=== PATIENT | male | born 1955 | race Caucasian/White ===

== ENCOUNTER 2016-08-28 14:10 | Inpatient (IN) | payer OTHER, MEDICARE ==
[2016-08-28] VITALS (7 sets, daily range): BP systolic 132–156; BP diastolic 78–100; PULSE 69–86; RESP 16–21; TEMP 98.2–98.8; O2SAT 95–99
[~2016-08-28] VITALS: Ht 177.8 cm; Wt 85.9 kg
[~2016-08-28 14:10] MED LIST: DIVA250T PO; GABA100C4 PO; HYDR-3533 PO; HYDR12.56 PO; LEVO137T2 PO; METH750T2 PO; NAPR-576 PO; OMEP20TA PO; PRED10PA PO; REME30TA PO; RISP1 PO; TRAM50 PO; UNK BP MED; ZOLO50TA PO; [UNRECOGNIZED DRUG - REMARK]; [UNRECOGNIZED DRUG - REMARK]
[2016-08-28] MEDS ORDERED: SODIUM CHLOR 0.9% 1000 ML INJ 1,000 ML IV ONE (15:07)
--- NOTE | 2016-08-28 15:08 | PD ---
HPI Chief Complaint: Abnormal Results Time Seen by Provider: 15:08 Travel History International Travel<30 days: No Contact w/Intl Traveler<30days: No Traveled to known affect area: No History of Present Illness HPI 60-year-old male with history of hypothyroidism, CAD, hypertension, COPD, presents to the emergency department for evaluation of hyponatremia. [facility] He went [facility] for reevaluation today and had lab work complete. He was called and instructed to come to the emergency department for low sodium. Patient states that the last week he has had intermittent bouts of lightheadedness with a sensation that he is going to "pass out." States that he has had no fevers or chills this week but did prior to receiving antibiotics for pneumonia. Patient states that he smokes tobacco cigarettes but has decreased to 1 daily. Denies any chest pain or tightness. No nausea or vomiting. No episodes of diaphoresis. No other symptoms to report. PFSH Past Medical History Bipolar Disorder: Yes Cardiovascular Problems: Yes (HTN) COPD: Yes Hypertension: Yes Respiratory: Yes (PNA) Seizures: Yes Thyroid Disease: Yes Social History Alcohol Use: Yes Tobacco Use: No Substance Use: No Allergies-Medications (Allergen,Severity, Reaction): Coded Allergies: No Known Allergies (Unverified , 08/28/16) Reported Meds & Prescriptions Reported Meds & Active Scripts Active Reported Methocarbamol 500 Mg Tab 500 Mg PO TID PRN Depakote DR (Divalproex Sodium) 500 Mg Tabdr 1,500 Mg PO HS Prazosin (Prazosin HCl) 2 Mg Cap 6 Mg PO HS Risperdal (Risperidone) 3 Mg Tab 3 Mg PO HS Remeron (Mirtazapine) 15 Mg Tab 15 Mg PO HS Zoloft (Sertraline HCl) 100 Mg Tab 200 Mg PO HS Pravastatin 20 Mg Tab 20 Mg PO HS Venlafaxine ER 24 HR (Venlafaxine HCl) 150 Mg Tab 150 Mg PO DAILY Omeprazole 20 Mg Tab 20 Mg PO DAILY Levothyroxine (Levothyroxine Sodium) 150 Mcg Tab 150 Mcg PO DAILY Dyazide (Triamterene-Hydrochlorothiazide) 37.5-25 Mg Cap 1 Cap PO DAILY Gabapentin 300 Mg Cap 900 Mg PO TID Review of Systems Except as stated in HPI: all other systems reviewed are Neg Physical Exam Narrative GENERAL: Well-nourished male patient, in no acute distress SKIN: Focused skin assessment warm/dry. HEAD: Atraumatic. Normocephalic. EYES: Pupils equal and round. No scleral icterus. No injection or drainage. ENT: No nasal bleeding or discharge. Mucous membranes pink and moist. NECK: Trachea midline. No JVD. CARDIOVASCULAR: Regular rate and rhythm. No murmur appreciated. RESPIRATORY: No accessory muscle use. Coarse throughout. Breath sounds equal bilaterally. GASTROINTESTINAL: Abdomen soft, non-tender, nondistended. Hepatic and splenic margins not palpable. MUSCULOSKELETAL: No obvious deformities. No clubbing. No cyanosis. No edema. NEUROLOGICAL: Awake and alert. No obvious cranial nerve deficits. Motor grossly within normal limits. Normal speech. PSYCHIATRIC: Appropriate mood and affect; insight and judgment normal. Data Data Last Documented VS Vital Signs Date Time Temp Pulse Resp B/P Pulse Ox O2 Delivery O2 Flow Rate FiO2 08/28/16 15:27 75 16 138/78 97 Room Air 08/28/16 14:12 98.8 Orders Electrocardiogram (08/28/16 15:07) Basic Metabolic Panel (Bmp) (08/28/16 15:07) Complete Blood Count With Diff (08/28/16 15:07) Magnesium (Mg) (08/28/16 15:07) Ckmb (Isoenzyme) Profile (08/28/16 15:07) Troponin I (08/28/16 15:07) Act Partial Throm Time (Ptt) (08/28/16 15:07) Prothrombin Time / Inr (Pt) (08/28/16 15:07) Urinalysis - C+S If Indicated (08/28/16 15:07) Chest, Single Ap (08/28/16 15:07) Ct Brain W/O Iv Contrast(Rout) (08/28/16 15:07) Ecg Monitoring (08/28/16 15:07) Iv Access Insert/Monitor (08/28/16 15:07) Oximetry (08/28/16 15:07) Sodium Chloride 0.9% Flush (Ns Flush) (08/28/16 15:15) Sodium Chlor 0.9% 1000 Ml Inj (Ns 1000 M (08/28/16 15:07) Ct Thorax/ Chest W Iv Contrast (08/28/16 ) CKMB (08/28/16 15:18) CKMB% (08/28/16 15:18) Iohexol 350 Inj (Omnipaque 350 Inj) (08/28/16 16:29) Admit Order (Ed Use Only) (08/28/16 17:16) Labs Laboratory Tests Test 08/28/16 08/28/16 15:18 17:10 White Blood Count 7.5 TH/MM3 Red Blood Count 4.55 MIL/MM3 Hemoglobin 13.9 GM/DL Hematocrit 38.8 % Mean Corpuscular Volume 85.3 FL Mean Corpuscular Hemoglobin 30.6 PG Mean Corpuscular Hemoglobin 35.9 % Concent Red Cell Distribution Width 13.2 % Platelet Count 228 TH/MM3 Mean Platelet Volume 6.9 FL Neutrophils (%) (Auto) 65.4 % Lymphocytes (%) (Auto) 18.3 % Monocytes (%) (Auto) 13.7 % Eosinophils (%) (Auto) 1.9 % Basophils (%) (Auto) 0.7 % Neutrophils # (Auto) 4.9 TH/MM3 Lymphocytes # (Auto) 1.4 TH/MM3 Monocytes # (Auto) 1.0 TH/MM3 Eosinophils # (Auto) 0.1 TH/MM3 Basophils # (Auto) 0.1 TH/MM3 CBC Comment DIFF FINAL Differential Comment Prothrombin Time 11.4 SEC Prothromb Time International 1.0 RATIO Ratio Activated Partial 35.2 SEC Thromboplast Time Sodium Level 116 MEQ/L Potassium Level 4.2 MEQ/L Chloride Level 81 MEQ/L Carbon Dioxide Level 25.7 MEQ/L Anion Gap 9 MEQ/L Blood Urea Nitrogen 13 MG/DL Creatinine 0.84 MG/DL Estimat Glomerular Filtration 93 ML/MIN Rate Random Glucose 78 MG/DL Calcium Level 8.1 MG/DL Magnesium Level 1.8 MG/DL Total Creatine Kinase 436 U/L Creatine Kinase MB 4.2 NG/ML Creatine Kinase MB % 1.0 % Troponin I LESS THAN 0.02 NG/ML Thyroid Stimulating Hormone 16.400 uIU/ML 3rd Gen Urine Color YELLOW Urine Turbidity HAZY Urine pH 7.5 Urine Specific [place] 1.014 Urine Protein NEG mg/dL Urine Glucose (UA) NEG mg/dL Urine Ketones NEG mg/dL Urine Occult Blood NEG Urine Nitrite NEG Urine Bilirubin NEG Urine Urobilinogen LESS THAN 2.0 MG/DL Urine Leukocyte Esterase NEG Urine WBC LESS THAN 1 /hpf Urine Squamous Epithelial <1 /hpf Cells Urine Amorphous Sediment RARE Microscopic Urinalysis Comment CULT NOT INDICATED Urine Osmolality 393 MOSM/KG Urine Random Sodium 90 MEQ/L MDM Medical Decision Making Medical Screen Exam Complete: Yes Emergency Medical Condition: Yes Medical Record Reviewed: Yes Differential Diagnosis Hyponatremia versus other electrolyte abnormality versus intracranial etiology versus neoplasm versus sepsis versus metastatic disease Narrative Course 60-year-old male presents to emergency department for evaluation of hyponatremia. Patient also has coarse breath sounds throughout. CBC is without acute concern. BMP is with a hyponatremia of 116. Troponin is less than 0.02. X-ray imaging of the chest shows a masslike opacity in the right middle lobe representing either complete consolidation of the right middle lobe versus mass. CT imaging of the thorax with contrast is warranted for further assessment. This is ordered. CT imaging of the brain is complete and pending. A call has been placed to [facility] for [facility]. I discussed with the patient findings on x-ray of his chest and informed him that CT imaging is ordered. Patient states that he was told in [place] that he did have a concerning area on his chest it just has not been worked up yet. I spoke with Dr. Singh. Patient will be admitted to the [facility] service. Diagnosis Primary Impression: Hyponatremia Additional Impression: Lung mass Admitting Information Admitting Physician Requests: Admit Condition: Stable Katherine العلي Aug 28, 2016 15:08
[2016-08-28] MEDS ORDERED: SODIUM CHLORIDE 0.9% FLUSH 10 ML FLUSH IVF PRN (15:15)
[2016-08-28 15:30] LABS: AUTOMATED NEUTROPHIL # 4.9 TH/MM3 (1.8-7.7); BASOPHIL # 0.1 TH/MM3 (0-0.2); BASOPHIL % 0.7 % (0.0-2.0); EOSINOPHIL # 0.1 TH/MM3 (0-0.4); EOSINOPHIL % 1.9 % (0.0-4.0); HEMATOCRIT 38.8 % (39.0-51.0); HEMO FLAGS DIFF FINAL; LYMPH % 18.3 % (9.0-44.0); LYMPHOCYTE # 1.4 TH/MM3 (1.0-4.8); MEAN CELL VOLUME 85.3 FL (80.0-100.0); MEAN CORPUSCULAR HEMOGLOBIN 30.6 PG (27.0-34.0); MEAN CORPUSCULAR HGB CONC 35.9 % (32.0-36.0); MONO % 13.7 % (0.0-8.0); NEUT % 65.4 % (16.0-70.0); PLATELET COUNT 228 TH/MM3 (150-450); RED BLOOD COUNT 4.55 MIL/MM3 (4.50-5.90); RED CELL DISTRIBUTION WIDTH 13.2 % (11.6-17.2); WHITE BLOOD COUNT 7.5 TH/MM3 (4.0-11.0)
[2016-08-28 15:37] LABS: APTT (PATIENT) 35.2 SEC (24.3-30.1); PROTHROMBIN TIME - PATIENT 11.4 SEC (9.8-11.6)
--- NOTE | 2016-08-28 15:51 | RADRPT ---
EXAM DATE/TIME: 08/28/2016 15:18 [facility] COMPARISON: No previous studies available for comparison. INDICATIONS : Dizziness. MEDICAL HISTORY : Chronic obstructive pulmonary disease. Asthma. SURGICAL HISTORY : None. ENCOUNTER: Initial ACUITY: 1 month PAIN SCORE: 0/10 LOCATION: chest FINDINGS: The heart is normal in size for the left lung is clear. The exam demonstrates either mass or complete consolidation of the right middle lobe. CT imaging of thorax is warranted for further assessment. CONCLUSION: 1. Mass like opacification in the right middle lobe representing either complete consolidation of the right middle lobe versus mass. CT imaging of the thorax with contrast is warranted for further asses sment. Lacho Lancaster MD on August 28, 2016 at 15:48 Board Certified Radiologist. This report was verified electronically.
[2016-08-28 15:57] LABS: ANION GAP 9 MEQ/L (5-15); BICARBONATE 25.7 MEQ/L (21.0-32.0); BLOOD UREA NITROGEN 13 MG/DL (7-18); CHLORIDE 81 MEQ/L (98-107); CREATINE KINASE 436 U/L (39-308); GLOMERULAR FILTRATION RATE 93 ML/MIN (>89); MAGNESIUM 1.8 MG/DL (1.5-2.5); POTASSIUM 4.2 MEQ/L (3.5-5.1)
[2016-08-28] MEDS ORDERED: DYAZ37.5 PO (15:59)
[2016-08-28] MEDS ORDERED: METH500T3 PO (15:59)
[2016-08-28] MEDS ORDERED: GABA300C5 PO (15:59)
[2016-08-28] MEDS ORDERED: DEPA500T PO (15:59)
[2016-08-28] MEDS ORDERED: PRAZ2CAP PO (15:59)
[2016-08-28] MEDS ORDERED: LEVO150T7 PO (15:59)
[2016-08-28] MEDS ORDERED: RISP3 PO (15:59)
[2016-08-28] MEDS ORDERED: REME15TA PO (15:59)
[2016-08-28] MEDS ORDERED: VENL150T PO (15:59)
[2016-08-28] MEDS ORDERED: OMEP20TA PO (15:59)
[2016-08-28] MEDS ORDERED: PRAV20TA2 PO (15:59)
[2016-08-28] MEDS ORDERED: ZOLO100T PO (15:59)
[2016-08-28 16:00] LABS: SODIUM (NA) 116 MEQ/L (136-145)
[2016-08-28 16:18] LABS: CKMB 4.2 NG/ML (0.5-3.6)
[2016-08-28] MEDS ORDERED: IOHEXOL 350 MG/ML 10 ML VIAL (for RAD DIAG) IV ONE (16:29)
--- NOTE | 2016-08-28 17:14 | RADRPT ---
EXAM DATE/TIME: 08/28/2016 15:49 [facility] COMPARISON: No previous studies available for comparison. INDICATIONS : Headache and altered mental status. RADIATION DOSE: 56.35 CTDIvol (mGy) MEDICAL HISTORY : Hypertension. SURGICAL HISTORY : None. ENCOUNTER: Initial ACUITY: 1 day PAIN SCALE: 5/10 LOCATION: cranial TECHNIQUE: Multiple contiguous axial images were obtained of the head. Using automated exposure control and adj ustment of the mA and/or kV according to patient size, radiation dose was kept as low as reasonably a chievable to obtain optimal diagnostic quality images. FINDINGS: CEREBRUM: The ventricles are normal for age. No evidence of midline shift, mass lesion, hemorrhage or acute in farction. No extra-axial fluid collections are seen. POSTERIOR FOSSA: The cerebellum and brainstem are intact. The 4th ventricle is midline. The cerebellopontine angle i s unremarkable. EXTRACRANIAL: The visualized portion of the orbits is intact. SKULL: The calvaria is intact. No evidence of skull fracture. CONCLUSION: Normal examination. Avinash Negron MD on August 28, 2016 at 17:12 Board Certified Radiologist. This report was verified electronically.
--- NOTE | 2016-08-28 17:37 | RADRPT ---
EXAM DATE/TIME: 08/28/2016 16:24 [facility] COMPARISON: CT BRAIN W/O CONTRAST, August 28, 2016, 15:49. INDICATIONS : Right middle lobe mass seen on CXR today. IV CONTRAST: 80 cc Omnipaque 350 (iohexol) IV RADIATION DOSE: 5.93 CTDIvol (mGy) MEDICAL HISTORY : Hypertension. SURGICAL HISTORY : None. ENCOUNTER: Initial ACUITY: 1 day PAIN SCALE: 3/10 LOCATION: Bilateral lower chest TECHNIQUE: Volumetric scanning of the chest was performed. Using automated exposure control and adjustment of t he mA and/or kV according to patient size, radiation dose was kept as low as reasonably achievable to obtain optimal diagnostic quality images. FINDINGS: The examination demonstrates a 6.2 x 6.5 cm right infrahilar mass. There is extensive adenopathy evid ent encasing the right hilum and extending into the subcarinal fred chain. There is superior mediast inal adenopathy as well with nodes measuring up to 4.5 x 3.3 cm. Findings are consistent with fairly widespread malignancy. Imaging through the thorax demonstrate advanced COPD changes. There are atelectatic changes within th e right middle lobe. The examination also demonstrates a 9 mm nodule in the posterior aspect of the r ight lobe, potentially representing a small satellite lesion. The visualized bony structures demonstrate degenerative changes but are otherwise intact. CONCLUSION: 1. There is a 6 cm mass arising from the inferior aspect of the right hilum with extension up into th e mediastinum and the subcarinal fred chain. There are numerous enlarged superior mediastinal nodes. The findings are consistent with fairly widespread malignancy. 2. There is a 9 mm ill-defined nodule in the posterior aspect of the right lower lobe. This is indete rminate by CT. Lacho Lancaster MD on August 28, 2016 at 17:31 Board Certified Radiologist. This report was verified electronically.
[2016-08-28 17:42] LABS: BLOOD, URINE NEG (NEG); COMMENT (UR) CULT NOT INDICATED; CULTURE IF INDICATED CULT NOT INDICATED; GLUCOSE,URINE NEG (NEG); KETONE, URINE NEG (NEG); NITRITE,URINE NEG (NEG); PH, URINE 7.5 (5.0-8.5); SQUAMOUS EPITHELIAL CELL URINE <1 /hpf (0-5); URINE COLOR YELLOW (YELLW/STRAW)
--- NOTE | 2016-08-28 18:44 | HHI.HP ---
HPI Service [facility] Primary Care Physician [facility] Admission Diagnosis hyponatremia; Lung mass Diagnoses: Chief Complaint: [place] for abnormal labs sodium of 116 Travel History International Travel<30 Days: No Contact w/Intl Traveler <30 Da: No Traveled to Known Affected Are: No History of Present Illness Patient is a 60-year-old male who was sent here from [place] hospital because of abnormal lab. Specifically sodium of 118. Patient denies any headache nausea or vomiting dizziness does complain of slight weakness but nothing more than usual. On further evaluation also had the abnormal chest x-ray here and a CT was done ordered by ER physician showed a right hilar mass. On further questioning patient was actually treated for pneumonia back in April. Persistent cough sputum productive of occasionally yellowish whitish phlegm. Denies any hemoptysis. The last time he was treated for pneumonia was in last week in [place] physical completed a course of by mouth antibiotics. Apparently the x-ray persistently abnormal and he was actually scheduled to have a another repeat imaging study sounds like CT next week. However because of his abnormal labs was sent here for further management. Review of Systems Constitutional: DENIES: Diaphoretic episodes, Fatigue, Fever, Weight gain, Weight loss, Chills, Dizziness, Change in appetite, Night Sweats Endocrine: DENIES: Heat/cold intolerance, Polydipsia, Polyuria, Polyphagia Eyes: DENIES: Blurred vision, Double Vision Ears, nose, mouth, throat: DENIES: Tinnitus, Ear Pain, Epistaxis, Odynophagia Respiratory: COMPLAINS OF: Cough, DENIES: Hemoptysis, Sputum production, Shortness of breath Cardiovascular: DENIES: Chest pain, Palpitations, Dyspnea on Exertion, Lower Extremity Edema, Orthopnea Gastrointestinal: DENIES: Black stools, Bloody stools, Difficulty Swallowing, Anorexia Genitourinary: DENIES: Urgency, Hematuria, Penile Discharge Musculoskeletal: DENIES: Joint pain, Stiffness Integumentary: DENIES: Pruritus Hematologic/lymphatic: DENIES: Bruising Immunologic/allergic: DENIES: Urticaria Neurologic: DENIES: Headache, Speech Problems, Tremor Psychiatric: DENIES: Suicidal Ideation, Homicidal Ideation Past Family Social History Past Medical History Hypertension Bipolar disorder Uropathy Chronic pain Hypothyroidism Hypertension GERD Insomnia Depression Past Surgical History Right knee per day grad surgery Maxillofacial surgery years ago from a blowout fracture Reported Medications Prazosin 6 mg at bedtime Depakote 1500 mg at bedtime Gabapentin 900 mg 3 times a day Remeron 50 mg at bedtime Zoloft 200 mg at bedtime Venlafaxine 150 mg daily Risperdal 3 mg at bedtime Methocarbamol 500 mg 3 times a day Pravastatin 20 mg at bedtime Dyazide 37.5/25 mg daily Omeprazole 20 mg daily Synthroid 150 g daily : Atrovent inhalers. Also have nebulizer machine when necessary Allergies: Coded Allergies: No Known Allergies (Unverified , 08/28/16) Family History Denies any family history of cancer Social History Smokes 3 packs a day for the longest time and is actually weaning himself down to1-3 cigarettes down per day Physical Exam Vital Signs Vital Signs Date Time Temp Pulse Resp B/P Pulse Ox O2 Delivery O2 Flow Rate FiO2 08/28/16 18:23 98.7 74 18 153/91 99 Room Air 08/28/16 15:27 75 16 138/78 97 Room Air 08/28/16 15:00 87 18 95 Room Air 08/28/16 14:12 98.8 86 20 132/96 95 Room Air Physical Exam GENERAL: well-developed patient, in no apparent distress. SKIN: No rashes, ecchymoses or lesions. Cool and dry. HEAD: Atraumatic. Normocephalic. No temporal or scalp tenderness. EYES: Pupils equal round and reactive. Extraocular motions intact. No scleral icterus. No injection or drainage. ENT: Nose without bleeding,. Throat without erythema, tonsillar hypertrophy or exudate. Uvula midline. Airway patent. NECK: Trachea midline. No JVD or lymphadenopathy. Supple, nontender, no meningeal signs. CARDIOVASCULAR: Regular rate and rhythm without murmurs, gallops, or rubs. RESPIRATORY: Clear to auscultation. Breath sounds equal bilaterally. No wheezes , rales, or rhonchi. No axillary lymphadenopathy GASTROINTESTINAL: Abdomen soft, non-tender, nondistended. No hepato-splenomegaly , or palpable masses. No guarding. MUSCULOSKELETAL: Extremities without clubbing, cyanosis, or edema. No joint tenderness, effusion, or edema noted. No calf tenderness. Negative Homans sign bilaterally. NEUROLOGICAL: Awake and alert. Cranial nerves II through XII intact. Motor and sensory grossly within normal limits. Five out of 5 muscle strength in all muscle groups. Normal speech. Laboratory Laboratory Tests Test 08/28/16 08/28/16 15:18 17:10 White Blood Count 7.5 Red Blood Count 4.55 Hemoglobin 13.9 Hematocrit 38.8 Mean Corpuscular Volume 85.3 Mean Corpuscular Hemoglobin 30.6 Mean Corpuscular Hemoglobin 35.9 Concent Red Cell Distribution Width 13.2 Platelet Count 228 Mean Platelet Volume 6.9 Neutrophils (%) (Auto) 65.4 Lymphocytes (%) (Auto) 18.3 Monocytes (%) (Auto) 13.7 Eosinophils (%) (Auto) 1.9 Basophils (%) (Auto) 0.7 Neutrophils # (Auto) 4.9 Lymphocytes # (Auto) 1.4 Monocytes # (Auto) 1.0 Eosinophils # (Auto) 0.1 Basophils # (Auto) 0.1 CBC Comment DIFF FINAL Differential Comment Prothrombin Time 11.4 Prothromb Time International 1.0 Ratio Activated Partial 35.2 Thromboplast Time Sodium Level 116 Potassium Level 4.2 Chloride Level 81 Carbon Dioxide Level 25.7 Anion Gap 9 Blood Urea Nitrogen 13 Creatinine 0.84 Estimat Glomerular Filtration 93 Rate Random Glucose 78 Calcium Level 8.1 Magnesium Level 1.8 Total Creatine Kinase 436 Creatine Kinase MB 4.2 Creatine Kinase MB % 1.0 Troponin I LESS THAN 0.02 Thyroid Stimulating Hormone 16.400 3rd Gen Urine Color YELLOW Urine Turbidity HAZY Urine pH 7.5 Urine Specific [place] 1.014 Urine Protein NEG Urine Glucose (UA) NEG Urine Ketones NEG Urine Occult Blood NEG Urine Nitrite NEG Urine Bilirubin NEG Urine Urobilinogen LESS THAN 2.0 Urine Leukocyte Esterase NEG Urine WBC LESS THAN 1 Urine Squamous Epithelial <1 Cells Urine Amorphous Sediment RARE Microscopic Urinalysis Comment CULT NOT INDICATED Urine Osmolality 393 Urine Random Sodium 90 Result Diagram: 08/28/16 1518 08/28/16 1518 Imaging Last Impressions Head CT 08/28/16 1507 Signed Impressions: Service Date/Time: Sunday, August 28, 2016 15:49 - CONCLUSION: Normal examination. Avinash Negron MD Chest X-Ray 08/28/16 1507 Signed Impressions: Service Date/Time: Sunday, August 28, 2016 15:18 - CONCLUSION: 1. Mass like opacification in the right middle lobe representing either complete consolidation of the right middle lobe versus mass. CT imaging of the thorax with contrast is warranted for further assessment. Lacho Lancaster MD Chest CT 08/28/16 0000 Signed Impressions: Service Date/Time: Sunday, August 28, 2016 16:24 - CONCLUSION: 1. There is a 6 cm mass arising from the inferior aspect of the right hilum with extension up into the mediastinum and the subcarinal fred chain. There are numerous enlarged superior mediastinal nodes. The findings are consistent with fairly widespread malignancy. 2. There is a 9 mm ill-defined nodule in the posterior aspect of the right lower lobe. This is indeterminate by CT. 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 - patient euvolemic strict fluid restriction consider NaCl tab or [facility] nephrology consult Hypothyroidism with elevated TSH- which can contribute to low Na We will increase Synthroid dose consider NaCl tabs. consider nephrology consult in am if no improvement- ? [facility] Lung mass with mediastinal metastases. IR consult for CT guided biopsy COPD. In remission continue on inhalers Hypertension as stated will discontinue Dyazide monitor blood pressures to change to another class of antihypertensive History of GERD continue on omeprazole History of bipolar disorder/depression. Continue on Depakote. Remeron. History of neuropathy continue on gabapentin 900 mg 3 times a day History of hyperlipidemia continue on pravastatin Discussed with patient. Discussed Condition With Patient Physician Certification 2 Midnight Certification Type: Admission for Inpatient Services Order for Inpatient Services The services are ordered in accordance with Medicare regulations or non- Medicare payer requirements, as applicable. In the case of services not specified as inpatient-only, they are appropriately provided as inpatient services in accordance with the 2-midnight benchmark. Estimated LOS (days): 3 days is the estimated time the patient will need to remain in the hospital, assuming treatment plan goals are met and no additional complications. Post-Hospital Plan: Not yet determined Delfino Singh MD Aug 28, 2016 18:44 Delfino Singh MD Aug 28, 2016 18:44
[2016-08-28] MEDS ORDERED: METHOCARBAMOL 500 MG TAB PO PRN (18:45)
[2016-08-28] MEDS ORDERED: cloNIDine HCL 0.1 MG TAB PO PRN (19:00)
[2016-08-28] MEDS: PRAVASTATIN SOD 20 MG TAB PO SCH (21:50)
[2016-08-28] MEDS: MIRTAZAPINE 15 MG TAB PO SCH (21:50)
[2016-08-28] MEDS: SERTRALINE HCL 100 MG TAB PO SCH (21:50)
[2016-08-28] MEDS: DIVALPROEX DR 500 MG TABEC PO SCH (21:50)
[2016-08-28] MEDS: risperiDONE 3 MG TAB PO SCH (21:51)
[2016-08-28] MEDS: PRAZOSIN HCL 2 MG CAP PO SCH (21:51)
[2016-08-29] VITALS (8 sets, daily range): BP systolic 116–153; BP diastolic 59–95; PULSE 63–82; RESP 16–20; TEMP 97.2–97.6; O2SAT 94–98
[2016-08-29] MEDS: LEVOTHYROXINE SODIUM 200 MCG TAB PO SCH (06:24)
[2016-08-29 06:51] LABS: BICARBONATE 24.8 MEQ/L (21.0-32.0); POTASSIUM 3.6 MEQ/L (3.5-5.1)
[2016-08-29] MEDS ORDERED: NON-FORMULARY DRUG (Omeprazole 20 MG) PO SCH (09:00)
[2016-08-29] MEDS ORDERED: VENLAFAXINE HCL XR 75 MG CAP PO SCH (09:00)
[2016-08-29] MEDS: amLODIPine BESYLATE 5 MG TAB PO SCH (10:01)
[2016-08-29] MEDS: GABAPENTIN 300 MG CAP PO SCH ×3 (10:01→21:41)
[2016-08-29] MEDS: PANTOPRAZOLE SOD 20 MG DELAYED RELEASE TAB PO SCH (10:02)
--- NOTE | 2016-08-29 12:59 | HHI.PR ---
Subjective Remarks no complains no dizziness, nausea or vomiting no abdominal pain,shortness of breath or chest pain Objective Vitals Vital Signs Date Time Temp Pulse Resp B/P Pulse Ox O2 Delivery O2 Flow Rate FiO2 08/29/16 08:00 97.6 72 18 153/95 94 08/29/16 04:00 97.6 67 16 138/90 98 08/29/16 00:00 97.2 75 17 116/69 98 08/28/16 21:15 70 08/28/16 21:00 98.2 72 18 156/93 98 08/28/16 20:21 78 19 136/96 96 Room Air 08/28/16 19:16 74 18 144/100 99 Room Air 08/28/16 19:14 77 25 99 Room Air 08/28/16 18:23 98.7 74 18 153/91 99 Room Air 08/28/16 15:27 75 16 138/78 97 Room Air 08/28/16 15:00 87 18 95 Room Air 08/28/16 14:12 98.8 86 20 132/96 95 Room Air I/O 08/28/16 08/28/16 08/28/16 08/29/16 08/29/16 08/29/16 07:00 15:00 23:00 07:00 15:00 23:00 Intake Total 480 ml 2 ml Balance 480 ml 2 ml Intake Oral 480 ml 0 ml IV Total 2 ml # Voids 2 2 # Bowel Movements 1 Result Diagram: 08/28/16 1518 08/29/16 0535 Imaging Last Impressions Head CT 08/28/16 1507 Signed Impressions: Service Date/Time: Sunday, August 28, 2016 15:49 - CONCLUSION: Normal examination. Avinash Negron MD Chest X-Ray 08/28/16 1507 Signed Impressions: Service Date/Time: Sunday, August 28, 2016 15:18 - CONCLUSION: 1. Mass like opacification in the right middle lobe representing either complete consolidation of the right middle lobe versus mass. CT imaging of the thorax with contrast is warranted for further assessment. Lacho Lancaster MD Chest CT 08/28/16 0000 Signed Impressions: Service Date/Time: Sunday, August 28, 2016 16:24 - CONCLUSION: 1. There is a 6 cm mass arising from the inferior aspect of the right hilum with extension up into the mediastinum and the subcarinal fred chain. There are numerous enlarged superior mediastinal nodes. The findings are consistent with fairly widespread malignancy. 2. There is a 9 mm ill-defined nodule in the posterior aspect of the right lower lobe. This is indeterminate by CT. 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 - patient euvolemic for lung biopsy- CT guided today strict fluid restriction start NaCl tab 1 gm bid Nephrology consult- ? [facility] Hypothyroidism with elevated TSH- which can contribute to low Na Increase synthroid dose- instruct him to take it on an empty stomach. TSH in 4-6 weeks Lung mass with mediastinal metastases. IR to do CT guided biopsy today COPD. In remission continue on inhalers Hypertension as stated will discontinue Dyazide monitor blood pressures to change to another class of antihypertensive History of GERD continue on omeprazole History of bipolar disorder/depression. Continue on Depakote. Remeron. History of neuropathy continue on gabapentin 900 mg 3 times a day History of hyperlipidemia continue on pravastatin Discussed with patient. DC when Na shows improvement [facility] with [facility] care Delfino Singh MD Aug 29, 2016 12:59
[2016-08-29] MEDS ORDERED: TOLVAPTAN 30 MG TAB PO ONE (13:00)
--- NOTE | 2016-08-29 13:08 | EKG ---
Date Performed: 08/28/2016 Time Performed: 15:26:57 PTAGE: 60 years EKG: Sinus rhythm WITH OCCASIONAL SUPRAVENTRICULAR PREMATURE COMPLEXES BORDERLINE ECG NO PREVIOUS TRACING DOCTOR: Adilson Tamez Interpretating Date/Time 08/29/2016 13:07:49
[2016-08-29] MEDS: SODIUM CHLORIDE 1 GRAM TAB PO SCH ×2 (13:14→21:41)
--- NOTE | 2016-08-29 13:27 | MB ---
cc: KALPESH LOPEZ MD DATE OF CONSULTATION: 08/29/2016 REASON FOR CONSULTATION: Hyponatremia for evaluation. HISTORY OF PRESENT ILLNESS This is a 60-year-old male with past medical history of hypertension, bipolar disorder, hypothyroidism, gastroesophageal reflux disease, depression, chronic pain was referred from [place] because of sodium of 116. I was called to see the patient because of hyponatremia. The patient had recent history of pneumonia and he was treated as needed by the physician by some oral antibiotics. He has history of smoking, recently he was doing better. He denies any shortness of breath. No chest pain. No palpitation. He claims that he is eating well but he ate food without any salt. He admits that he has been drinking alot of fluid, especially the coffee. There is no history of nausea, vomiting or diarrhea. He was also found to have lung mass on the CT scan with a right hilar mass, and his sodium is now 118, he came at 116. PAST MEDICAL HISTORY: 1. Hypertension 2. Bipolar disorder 3. Hypothyroidism 4. Depression 5. Chronic pain syndrome. 6. He has trace gastroesophageal reflux disease. PAST SURGICAL HISTORY 1. Right knee surgery. 2. Maxillofacial surgery. REVIEW OF SYSTEMS There is no history of fever. No sore throat. His breathing is improved. Denies any shortness of breath. No chest pain. No palpitation. No nausea, vomiting. No history of diarrhea and appetite is normal but he is not putting salt in the food and he admits that he has been drinking a lot of fluid, especially he is drinking many cups of coffee a day. SOCIAL HISTORY The patient is long-term smoker and she is started he use to smoke three packs per day but now he is cutting down and is close to two cigarettes a day. FAMILY HISTORY: Family history is noncontributory. ALLERGIES He has NO KNOWN DRUG ALLERGIES. MEDICATIONS Currently he is on 1. Effexor 150 mg once a day. 1. Norvasc 5 mg daily. 2. Protonix 20 mg once a day. 3. Synthroid 200 mcg daily. 4. Depakote 1.5 grams q.h.s. 5. Remeron 15 grams q.h.s. 6. Pravachol 20 mg q.h.s. 7. Minipress 6 mg q.h.s. 8. Risperdal 3 mg q.h.s. 9. Zoloft 400 mg q.h.s. 10. Gabapentin 900 mg t.i.d. PHYSICAL EXAMINATION: IN GENERAL: On examination the patient is awake, alert. He is not in acute distress. VITAL SIGNS: Last blood pressure is 153/95. He is oriented x3 his temperature is 97.6, oxygen saturation 94-98% on room air. HEAD, EYES, EARS, NOSE, AND THROAT: Pupils equal, round, reactive to light and accommodation, nonicteric sclera, conjunctivae normal. NECK: The neck is supple. JVD is a day is not elevated. LUNGS: The patient has bilateral good air entry. No wheezing. HEART: S1, S2, regular rhythm. ABDOMEN: The abdomen is soft lax. There is no tenderness. Bowel sounds positive. EXTREMITIES: There is no pedal edema. LABORATORY FINDINGS: Investigation WBC count 7.5, hemoglobin 13.9, platelet count of 228, sodium is 118. Potassium 3.6, chloride 83, bicarb 24.8, BUN 14, creatinine 0.7. Calcium 8.1, creatinine kinase 436, trop I less than 0.02. TSH is high at 16.4, INR is 1.0. Urinalysis showing specific gravity 1.014, sodium of 90 and osmolality of 393. IMAGING STUDIES: The patient had chest x-ray done which shows a mass-like opacification in the right middle lobe. CT scan recommended. A CT scan of the head was done which shows normal examination. Chest CT scan done which shows a 6 cm mass arising from the inferior aspect of the right hilar 9 mm, ill-defined nodules in the posterior aspect of right lobe. ASSESSMENT/PLAN 1. Hyponatremia. 2. Lung mass. 3. History of hypertension 4. Hypothyroidism 5. Anxiety depression. 6. The patient has low sodium clinically, he looks euvolemic. His serum osmolality is low and the urine osmolality is a higher than the serum osmolality. So he possibly has an element of SIADH the etiology could be in the lung mass and also there is a possibility of some contribution by the hyponatremia and Effexor can also contribute to. He is on thyroid supplement and I will discontinue his Effexor at present and give him one dose of to improve the sodium level. The patient was told to cut down his fluid intake, and he is on fluid restriction of 1 liter at present. Thank you for the consultation and I will follow the patient while he is in the hospital. MD DARRION Kang/maura /12:56 PM /1:14 PM
[2016-08-29] MEDS ORDERED: TOLVAPTAN 15 MG TAB PO ONE ×2 (13:45→15:45)
[2016-08-29] MEDS ORDERED: LIDOCAINE 1%/EPINEPHrine 1:100,000 SOLN 20 ML VIAL ONE (17:19)
[2016-08-29] MEDS ORDERED: fentaNYL CITRATE 250 MCG/5 ML AMP ONE (17:20)
[2016-08-29] MEDS ORDERED: MIDAZOLAM HCL 5 MG/5 ML VIAL ONE (17:20)
--- NOTE | 2016-08-29 18:06 | PD.RAD ---
Post Procedure Progress Note Pre Procedure Diagnosis: (1) Lung mass Post Procedure Diagnosis: (1) Lung mass Procedure Date: Aug 29, 2016 Supervising Radiologist: Lacho Lancaster Estimated blood loss: None Anesthesia: Local, Conscious Sedation Plan of Activity Patient to Unit: [facility] Patient Condition: Fair Additional Comments: PT post anterior mediastinal mass biopsy No complications evident on follow up CT chest CXR pending See PACS Report for procedural detail/treatment Lacho Lancaster MD Aug 29, 2016 18:06
--- NOTE | 2016-08-29 19:27 | RADRPT ---
EXAM DATE/TIME: 08/29/2016 18:26 [facility] COMPARISON: CT THORAX W CONTRAST, August 28, 2016, 16:24. INDICATIONS : Cough. MEDICAL HISTORY : Chronic obstructive pulmonary disease. Asthma SURGICAL HISTORY : None. ENCOUNTER: Initial ACUITY: 1 day PAIN SCORE: 0/10 LOCATION: Bilateral chest FINDINGS: Right lung mass and mediastinal adenopathy are again seen. No definite pneumothorax is seen for techn ique. CONCLUSION: No definite pneumothorax is seen for technique. K. Hari Calrson MD on August 29, 2016 at 19:25 Board Certified Radiologist. This report was verified electronically.
[2016-08-29] MEDS: PRAZOSIN HCL 2 MG CAP PO SCH (21:41)
[2016-08-29] MEDS: PRAVASTATIN SOD 20 MG TAB PO SCH (21:41)
[2016-08-29] MEDS: SERTRALINE HCL 100 MG TAB PO SCH (21:42)
[2016-08-29] MEDS: risperiDONE 3 MG TAB PO SCH (21:42)
[2016-08-29] MEDS: DIVALPROEX DR 500 MG TABEC PO SCH (21:42)
[2016-08-29] MEDS: MIRTAZAPINE 15 MG TAB PO SCH (21:42)
[2016-08-30 00:01] VITALS: BP 109/59; PULSE 85; RESP 18; TEMP 97.9; O2SAT 95
[2016-08-30 04:00] VITALS: BP 121/72; PULSE 88; RESP 17; TEMP 98; O2SAT 94
[2016-08-30] MEDS: LEVOTHYROXINE SODIUM 200 MCG TAB PO SCH (06:54)
[2016-08-30 08:00] VITALS: BP 106/78; PULSE 82; RESP 18; TEMP 98.6; O2SAT 91
--- NOTE | 2016-08-30 08:35 | RADRPT ---
EXAM DATE/TIME: 08/29/2016 17:31 [facility] COMPARISON: CT THORAX W CONTRAST, August 28, 2016, 16:24. CHEST EXPIRATION ONLY, August 29, 2016, 18:26. INDICATIONS : Right mediastinal mass. SEDATION TIME: 15 minutes BIOPSY SITE: Right chest. MEDICATION(S): 1.) 1 mg midazolam (Versed) IV 2.) 50 mcg fentanyl (Sublimaze) IV DEVICE(S): 1.) 18 gauge Romna blunt needle 2.) 20 gauge Temno core biopsy needle MEDICAL HISTORY : Chronic obstructive pulmonary disease. Hypertension. SURGICAL HISTORY : None. ENCOUNTER: Initial ACUITY: 1 day PAIN SCORE: 0/10 LOCATION: Right chest A total of two core specimen(s) were obtained and sent to the laboratory for pathologic evaluation. PROCEDURE: 1. CT guided mediastinal biopsy. Prior to the procedure informed consent was obtained. Any appropriate prior imaging studies were rev iewed. Using automated exposure control and adjustment of the mA and/or kV according to patient size, radiat ion dose was kept as low as reasonably achievable to obtain optimal diagnostic quality images. The site was prepped in a sterile fashion. Full sterile technique was used, including cap, mask, eladio rile gloves and gown and a large sterile sheet. Hand hygiene and 2% chlorhexidine and/or betadine/al cohol prep was utilized per protocol for cutaneous antisepsis. The skin and subcutaneous tissues wer e infiltrated with local anesthetic solution. With CT guidance the previously identified target was localized. A Roman blunt needle was advanced to the anterior chest wall down to the large superior mediastinal node. 3 core biopsies were obtained through the Roman guide using a 20 gauge Temno biopsy gun. Adequate hemostasis was obtained with c ompression at the puncture site. Follow-up CT scan reveals no hemorrhage. The patient tolerated the procedure well and there were no complications. The patient was returned to the Radiology Outpatient Unit in stable condition. CONCLUSION: Uncomplicated CT guided biopsy. Lacoh Lancaster MD on August 30, 2016 at 8:33 Board Certified Radiologist. This report was verified electronically.
[2016-08-30] MEDS: PANTOPRAZOLE SOD 20 MG DELAYED RELEASE TAB PO SCH (09:27)
[2016-08-30] MEDS: GABAPENTIN 300 MG CAP PO SCH ×3 (09:28→17:46)
[2016-08-30] MEDS: amLODIPine BESYLATE 5 MG TAB PO SCH (09:28)
[2016-08-30] MEDS: SODIUM CHLORIDE 1 GRAM TAB PO SCH (09:28)
[2016-08-30 11:49] LABS: BICARBONATE 28.3 MEQ/L (21.0-32.0); POTASSIUM 3.5 MEQ/L (3.5-5.1)
[2016-08-30 12:00] VITALS: BP 98/56; PULSE 92; RESP 18; TEMP 98.1; O2SAT 92
[2016-08-30 12:10] LABS: ALT (GPT) 21 U/L (12-78); ANION GAP 9 MEQ/L (5-15); AST (GOT) 15 U/L (15-37); BICARBONATE 28.1 MEQ/L (21.0-32.0); BLOOD UREA NITROGEN 20 MG/DL (7-18); CHLORIDE 94 MEQ/L (98-107); GLOMERULAR FILTRATION RATE 69 ML/MIN (>89); POTASSIUM 3.5 MEQ/L (3.5-5.1); SODIUM (NA) 131 MEQ/L (136-145)
--- NOTE | 2016-08-30 12:16 | HHI.NPPN ---
Subjective History of Present Illness 60-year-old male with past medical history of hypertension, bipolar disorder, hypothyroidism, gastroesophageal reflux disease, depression, chronic pain was referred from [place] because of sodium of 116. I was called to see the patient because of hyponatremia. Additional Remarks Patient is alert, feeling better, breathing improved, eating well. Review of Systems General Constitutional: Fatigue Cardiovascular Cardiac: RITTER Objective Data Data 08/29/16 08/30/16 19:00 07:00 Intake Total 0 ml 300 ml Balance 0 ml 300 ml Intake Oral 0 ml 300 ml # Voids 2 4 # Bowel Movements 2 Vital Signs Date Time Temp Pulse Resp B/P Pulse Ox O2 Delivery O2 Flow Rate FiO2 08/30/16 12:00 98.1 92 18 98/56 92 08/30/16 08:00 98.6 82 18 106/78 91 08/30/16 04:00 98.0 88 17 121/72 94 08/30/16 00:01 97.9 85 18 109/59 95 08/29/16 20:00 97.4 82 19 121/79 94 08/29/16 19:51 81 08/29/16 19:00 82 12 117/85 98 08/29/16 18:45 86 15 118/80 97 08/29/16 18:30 84 12 124/78 96 Nasal Cannula 2 08/29/16 18:14 98.4 88 12 137/86 92 Nasal Cannula 2 08/29/16 17:28 73 08/29/16 16:00 97.5 75 20 141/59 94 -: 08/28/16 1518 08/30/16 1104 Physical Exam General Appearance: No Acute Distress, Comfortable Eyes Eye Exam: Pupils Equal Throat Throat Exam: Oral Mucosa [place] & Moist Neck Neck Exam: Neck Supple Pulmonary Resp Exam: Breath Sounds Equal, No Distress, Rhonchi, Decreased Bases Cardiology CV Exam: Regular, Normal Sinus Rhythm Gastrointestinal/Abdomen GI Exam: Soft, Non-Tender, Bowel Sounds Present Extremeties Extremities Exam: No Edema Neurologic Neuro Exam: Alert, Awake, Oriented Psychiatric Psych Exam: Appropriate Responses Assessment/Plan Electrolyte Assessment: Hyponatremia Problem List: (1) Lung mass (2) Hyponatremia (3) Depression (4) Hypothyroidism Plan Patient has been euvolemic. Has no edema, serum osmolality is low , and urine osmolality is higher than serum. Now Na. is better , 131. Most likely Hyponatremia is a combination of SIADH, excessive fluid intake and Hypothyroidism. Told to restrict fluid intake, drinking tea and coffee. Biopsy of mediastinal mass done. Alma Perez MD Aug 30, 2016 12:16
[2016-08-30 12:27] LABS: ALKALINE PHOSPHATASE 89 U/L (45-117); FREE T3 1.39 PG/ML (2.18-3.98); TOTAL BILIRUBIN ADULT 0.3 MG/DL (0.2-1.0)
--- NOTE | 2016-08-30 13:01 | HHI.PR ---
Subjective Remarks no complains of chest pain or shortness of breath had mediastinal biopsy yesterday- tolerated procedure well Objective Vitals Vital Signs Date Time Temp Pulse Resp B/P Pulse Ox O2 Delivery O2 Flow Rate FiO2 08/30/16 12:00 98.1 92 18 98/56 92 08/30/16 08:00 98.6 82 18 106/78 91 08/30/16 04:00 98.0 88 17 121/72 94 08/30/16 00:01 97.9 85 18 109/59 95 08/29/16 20:00 97.4 82 19 121/79 94 08/29/16 19:51 81 08/29/16 19:00 82 12 117/85 98 08/29/16 18:45 86 15 118/80 97 08/29/16 18:30 84 12 124/78 96 Nasal Cannula 2 08/29/16 18:14 98.4 88 12 137/86 92 Nasal Cannula 2 08/29/16 17:28 73 08/29/16 16:00 97.5 75 20 141/59 94 I/O 08/29/16 08/29/16 08/29/16 08/30/16 08/30/16 08/30/16 07:00 15:00 23:00 07:00 15:00 23:00 Intake Total 2 ml 0 ml 200 ml 100 ml Balance 2 ml 0 ml 200 ml 100 ml Intake Oral 0 ml 0 ml 200 ml 100 ml IV Total 2 ml # Voids 2 2 3 1 # Bowel Movements 1 2 Result Diagram: 08/28/16 1518 08/30/16 1104 Imaging Last Impressions Needle Biopsy CT 08/29/16 0000 Signed Impressions: Service Date/Time: August 17:31 - CONCLUSION: Uncomplicated CT guided biopsy. Lacho Lancaster MD Chest X-Ray 08/29/16 0000 Signed Impressions: Service Date/Time: August 18:26 - CONCLUSION: No definite pneumothorax is seen for technique. K. Hari Carlson MD Head CT 08/28/16 1507 Signed Impressions: Service Date/Time: Sunday, August 28, 2016 15:49 - CONCLUSION: Normal examination. Avinash Negron MD Chest CT 08/28/16 0000 Signed Impressions: Service Date/Time: Sunday, August 28, 2016 16:24 - CONCLUSION: 1. There is a 6 cm mass arising from the inferior aspect of the right hilum with extension up into the mediastinum and the subcarinal fred chain. There are numerous enlarged superior mediastinal nodes. The findings are consistent with fairly widespread malignancy. 2. There is a 9 mm ill-defined nodule in the posterior aspect of the right lower lobe. This is indeterminate by CT. 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 .patient euvolemic strict fluid restriction. his diuretics was DC. Effexor DC Hypothyroidism with elevated TSH- which can contribute to low Na Increase synthroid dose to 200 mcg daily- instruct him to take it on an empty stomach. 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 In remission continue on inhalers Hypertension Dyazide DC Amlodipine 5 mg po daily History of GERD continue on omeprazole History of bipolar disorder/depression. Continue on Depakote. Remeron. Effexor DC History of neuropathy continue on gabapentin 900 mg 3 times a day History of hyperlipidemia continue on pravastatin DC home today FF up with PCP- [place]- on Friday- repeat BMP Diet heart healthy- fluid restriction 1L day Medications continue home meds except Dyazide and Effexor. new meds- Amlodipine 5 mg po daily.#30 NaCl 1 5m i tab po daily x 5 days BMP on Friday. PCP ff [facility]- [facility] nurse will ff up biopsy results and fax it to [facility] [place] [facility]- Dr. Nichole . discuss with patient and family - expressed full understanding Reinforced smoking cessation Delfino Singh MD Aug 30, 2016 13:01
[2016-08-30 15:14] VITALS: PULSE 103
[2016-08-30 16:00] VITALS: BP 123/69; PULSE 93; RESP 18; TEMP 98.2; O2SAT 93
[2016-08-30] MEDS ORDERED: LEVO.2 PO (17:15)
[2016-08-30] MEDS ORDERED: AMLO5 PO (17:15)
[2016-08-30] MEDS ORDERED: SODI1TAB PO (17:30)
== END 2016-08-30 17:55 | disposition home or self-care (01) | DRG 824 ==
LOC: NEPE 14:10 → NEDA 17:17 → N04B 20:55
PROVIDERS: ADMIT Internal Medicine; ATTEND Internal Medicine
PROC: 07B73ZX Excision of Thorax Lymphatic, Percutaneous Approach, Diagnostic (ICD-10-PCS; principal; 2016-08-29)
DX: C77.1 Secondary and unspecified malignant neoplasm of intrathoracic lymph nodes (principal); E22.2 Syndrome of inappropriate secretion of antidiuretic hormone; C34.90 Malignant neoplasm of unspecified part of unspecified bronchus or lung; G62.9 Polyneuropathy, unspecified; J44.9 Chronic obstructive pulmonary disease, unspecified; I10 Essential (primary) hypertension; I25.10 Atherosclerotic heart disease of native coronary artery without angina pectoris; E03.9 Hypothyroidism, unspecified; E78.5 Hyperlipidemia, unspecified; K21.9 Gastro-esophageal reflux disease without esophagitis; G89.29 Other chronic pain; G47.00 Insomnia, unspecified; Z79.899 Other long term (current) drug therapy; F31.9 Bipolar disorder, unspecified; Z87.01 Personal history of pneumonia (recurrent); Z72.0 Tobacco use
CPT/HCPCS: 32405; 70450; 71010; 71260; 77012; 80048; 80053; 81001; 82550; 82552; 83735; 83935; 84300; 84439; 84443; 84481; 84484; 85025; 85610; 85730; 88307; 88341; 88342; 93005; 96374; J2250; J3010; J7030; Q9967